=== PATIENT | female | born 1985 | race Caucasian/White ===

== ENCOUNTER 2021-06-16 16:32 | Emergency (ER) | payer OTHER ==
[~2021-06-16] VITALS: Ht 167.6 cm; Wt 115.9 kg
[2021-06-16] MEDS ORDERED: IV NORMAL SALINE 1,000ML 1,000 ML IV SCH (18:15)
[2021-06-16] MEDS ORDERED: ONDANSETRON PF 4 MG/2 ML VIAL. IVP ONE (18:15)
--- NOTE | 2021-06-16 18:18 | PHYS DOC ---
Past History Past Medical History IBS Past Surgical History: Cholecystectomy Additional Past Surgical Histo: ankle sx, L hand Drug Use: None General Adult EDM: Chief Complaint: MULTIPLE COMPLAINTS HPI: HPI: 36-year-old female with a history of IBS presents to the emergency department complaining of constipation for several days. She reports today she passed a stool that was coated with flaxseed which she has been eating for her constipation. She reports pain is diffuse across her abdomen that is been intermittent, affected by her bowel movements. She also reports some brown vaginal discharge, but denies that stool was passing through the vagina contrary to triage note. She denies any bleeding currently. The patient denies nausea, vomiting, fever, chills, chest pain, shortness of breath, urinary symptoms, cough, recent trauma, or any other complaints. She has not followed up with an [employer] [employer] [facility] or GI doctor as she is just moved to the area Review of Systems: Review of Systems: Review of systems otherwise negative except what was mentioned in HPI Allergies: Allergies: Allergies Coded Allergies Type Severity Reaction Last Updated Verified escitalopram Allergy Unknown 06/16/21 Yes Physical Exam: PE: Constitutional: No acute distress, non-toxic appearance. HENT: Atraumatic, bilateral external ears normal, nose normal. Eyes: PERRLA, EOMI, conjunctiva normal, no discharge. Neck: Normal range of motion, supple, no stridor. Cardiovascular: Heart rate regular rhythm. 2+ radial pulses Lungs & Thorax: No respiratory distress, symmetrical expansion. Abdomen: Diffuse mild tenderness, no peritoneal signs no rebound or guarding Skin: Warm, dry. Extremities: No tenderness, no cyanosis, ROM intact, no edema. Neurologic: Alert and oriented X 3, normal motor function, normal sensory function, no focal deficits noted. Non ataxic gait. GCS 15. Psychologic: Affect normal, judgment normal, mood normal. Current Patient Data: Labs: Laboratory Tests Test 06/16/21 16:58 06/16/21 18:28 Urine Collection Type Unknown Urine Color Straw Urine Clarity Clear Urine pH 7.0 Urine Specific Wendell 1.015 Urine Protein Neg (NEG-TRACE) Urine Glucose (UA) Neg mg/dL (NEG) Urine Ketones (Stick) Neg mg/dL (NEG) Urine Blood Neg (NEG) Urine Nitrite Neg (NEG) Urine Bilirubin Neg (NEG) Urine Urobilinogen Dipstick 0.2 mg/dL (0.2 mg/dL) Urine Leukocyte Esterase Neg (NEG) Urine RBC 0 /HPF (0-2) Urine WBC Rare /HPF (0-4) Urine Squamous Epithelial Cells Occ /LPF Urine Bacteria 0 /HPF (0-FEW) Sodium Level 141 mmol/L (136-145) Potassium Level 4.1 mmol/L (3.5-5.1) Chloride Level 102 mmol/L (98-107) Carbon Dioxide Level 29 mmol/L (21-32) Anion Gap 10 (6-14) Blood Urea Nitrogen 11 mg/dL (7-20) Creatinine 0.6 mg/dL (0.6-1.0) Estimated GFR (Cockcroft-Gault) 113.8 BUN/Creatinine Ratio 18 (6-20) Glucose Level 77 mg/dL (70-99) Calcium Level 9.1 mg/dL (8.5-10.1) Total Bilirubin 0.6 mg/dL (0.2-1.0) Aspartate Amino Transferase (AST) 22 U/L (15-37) Alanine Aminotransferase (ALT) 28 U/L (14-59) Alkaline Phosphatase 80 U/L (46-116) Total Protein 7.0 g/dL (6.4-8.2) Albumin 4.0 g/dL (3.4-5.0) Albumin/Globulin Ratio 1.3 (1.0-1.7) Lipase 49 U/L (73-393) L White Blood Count 9.8 x10^3/uL (4.0-11.0) Red Blood Count 4.18 x10^6/uL (3.50-5.40) Hemoglobin 12.6 g/dL (12.0-15.5) Hematocrit 38.6 % (36.0-47.0) Mean Corpuscular Volume 92 fL (79-100) Mean Corpuscular Hemoglobin 30 pg (25-35) Mean Corpuscular Hemoglobin Concent 33 g/dL (31-37) Red Cell Distribution Width 14.0 % (11.5-14.5) Platelet Count 302 x10^3/uL (140-400) Neutrophils (%) (Auto) 63 % (31-73) Lymphocytes (%) (Auto) 28 % (24-48) Monocytes (%) (Auto) 7 % (0-9) Eosinophils (%) (Auto) 2 % (0-3) Basophils (%) (Auto) 1 % (0-3) Neutrophils # (Auto) 6.2 x10^3uL (1.8-7.7) Lymphocytes # (Auto) 2.8 x10^3/uL (1.0-4.8) Monocytes # (Auto) 0.6 x10^3/uL (0.0-1.1) Eosinophils # (Auto) 0.2 x10^3/uL (0.0-0.7) Basophils # (Auto) 0.1 x10^3/uL (0.0-0.2) Vital Signs: Vital Signs Date Time Temp Pulse Resp B/P (MAP) Pulse Ox O2 Delivery O2 Flow Rate FiO2 06/16/21 17:02 98.5 68 18 134/77 97 Room Air Radiology/Procedures: Radiology/Procedures: CT abdomen and pelvis with contrast: Reason for examination: Abdominal pain with nausea and constipation. Helical images were obtained through the abdomen pelvis with intravenous administration of 75 cc Omnipaque 300. Reconstruction was performed in sagittal and coronal planes. Exposure: One or more of the following individualized dose reduction techniques were utilized for this examination: 1. Automated exposure control 2. Adjustment of the mA and/or kV according to patient size 3. Use of iterative reconstruction technique. The lung bases are clear. The heart size is normal with no pericardial effusion. No abnormality seen at the liver, spleen, adrenal glands or pancreas. The gallbladder surgically absent. The abdominal aorta and inferior vena cava show no abnormality. No abnormality seen at the appendix. The colon shows no diverticulosis, diverticulitis or colitis. The small intestinal tract shows no abnormal dilatation, wall thickening and no evidence of obstruction. The stomach shows no wall thickening or obstruction no abnormality seen at the duodenum. The kidneys show no renal masses, renal calculi, hydronephrosis or evidence of obstructive uropathy. No abnormality seen at the bladder or uterus. There does appear to be a 2 cm cystic lesion in the right ovary as well as a couple small follicles in the left ovary. No other adnexal masses or free fluid are seen. No acute bony abnormalities are seen. IMPRESSION: Small 2 cm cyst in the right ovary and small follicles in the left ovary. No other focal abnormality seen in the abdomen or pelvis. Electronically signed by: Luna Barlow MD (06/16/2021 6:48 PM) Heart Score: C/O Chest Pain: No Course & Med Decision Making: Course & Med Decision Making Patient's labs are unremarkable, she did not want to wait for her wet mount results. She was advised to follow-up with an [facility] [employer] [facility] and GI doctor for further care. CT as above was unremarkable. Patient is comfortable with plan Departure Departure: Impression: Primary Impression: Abdominal pain Disposition: HOME / SELF CARE / HOMELESS Condition: STABLE Referrals: GINA PACHECO MD (PCP) SHAYY BEAL MD Patient Instructions: Abdominal Pain (Nonspecific) Additional Instructions: You were seen in the emergency department for abdominal pain. Your tests did not show any obvious acute cause of your symptoms and your physical exam was non concerning for a dangerous disease process at this time. This however can change early in a disease course. You must return to the ED if you develop any new or worrisome symptoms for another exam. - Make sure to drink plenty of fluids at home - You may take a gentle laxative such as Miralax (over the counter) for bowel comfort. - Avoid drinking alcohol while you are having abdominal pain as this may worsen symptoms. - Return to the ER if you are not able to tolerate water and/or a normal diet, have increased pain or a change in character of your pain, develop a fever (>100.3 F), have nausea, vomiting and/or diarrhea that is unable to be treated at home, pass out, and/or you are not able to perform you normal daily activity. Please follow-up with an [facility] [employer] [facility] and GI doctor for further care Dr. Javi Suarez Jr, MD [employer] in [place], [place] Address: [address] [place] [address] [id number], [place] [address] JUAN TALAVERA DO Jun 16, 2021 18:18
[2021-06-16] MEDS ORDERED: IOHEXOL 300 MG/ML 75 ML VIAL. IV ONE (18:30)
--- NOTE | 2021-06-16 18:51 | RAD ---
CT abdomen and pelvis with contrast: Reason for examination: Abdominal pain with nausea and constipation. Helical images were obtained through the abdomen pelvis with intravenous administration of 75 cc Omni paque 300. Reconstruction was performed in sagittal and coronal planes. Exposure: One or more of the following individualized dose reduction techniques were utilized for thi s examination: 1. Automated exposure control 2. Adjustment of the mA and/or kV according to patient size 3. Use of iterative reconstruction technique. The lung bases are clear. The heart size is normal with no pericardial effusion. No abnormality seen at the liver, spleen, adrenal glands or pancreas. The gallbladder surgically abse nt. The abdominal aorta and inferior vena cava show no abnormality. No abnormality seen at the append ix. The colon shows no diverticulosis, diverticulitis or colitis. The small intestinal tract shows no abnormal dilatation, wall thickening and no evidence of obstruction. The stomach shows no wall thick ening or obstruction no abnormality seen at the duodenum. The kidneys show no renal masses, renal andreina culi, hydronephrosis or evidence of obstructive uropathy. No abnormality seen at the bladder or uterus. There does appear to be a 2 cm cystic lesion in the rig ht ovary as well as a couple small follicles in the left ovary. No other adnexal masses or free fluid are seen. No acute bony abnormalities are seen. IMPRESSION: Small 2 cm cyst in the right ovary and small follicles in the left ovary. No other focal abnormality seen in the abdomen or pelvis. Electronically signed by: Luna Barlwo MD (06/16/2021 6:48 PM) L[facility]
[2021-06-16 19:16] LABS: CALCIUM 9.1 mg/dL (8.5-10.1); CREATININE 0.6 mg/dL (0.6-1.0); GFR 113.8; POTASSIUM 4.1 mmol/L (3.5-5.1)
[2021-06-16 19:22] LABS: ALBUMIN/GLOBULIN RATIO 1.3 (1.0-1.7); TOTAL BILIRUBIN 0.6 mg/dL (0.2-1.0)
[2021-06-16 19:22] LABS: BASO # 0.1 x10^3/uL (0.0-0.2); BASO % 1 % (0-3); EOS # 0.2 x10^3/uL (0.0-0.7); EOS % 2 % (0-3); HEMATOCRIT 38.6 % (36.0-47.0); HEMOGLOBIN 12.6 g/dL (12.0-15.5); LYMPH # 2.8 x10^3/uL (1.0-4.8); LYMPH % 28 % (24-48); MEAN CORPUSCULAR HEMOGLOBIN 30 pg (25-35); MEAN CORPUSCULAR HGB CONC 33 g/dL (31-37); MEAN CORPUSCULAR VOLUME 92 fL (79-100); MONO # 0.6 x10^3/uL (0.0-1.1); MONO % 7 % (0-9); NEUT # 6.2 x10^3uL (1.8-7.7); NEUT % 63 % (31-73); PLATELET COUNT 302 x10^3/uL (140-400); RED BLOOD COUNT 4.18 x10^6/uL (3.50-5.40); WHITE BLOOD COUNT 9.8 x10^3/uL (4.0-11.0)
[2021-06-16 19:39] LABS: BACTERIA,URINE 0 /HPF (0-FEW); BILIRUBIN,URINE NEG (NEG); CLARITY,URINE CLEAR; COLOR,URINE STRAW; GLUCOSE,URINE NEG (NEG); NITRITE,URINE NEG (NEG); RBC,URINE 0 /HPF (0-2); SQUAMOUS EPITHELIAL CELL,UR OCC /LPF; UROBILINOGEN,URINE 0.2 mg/dL (0.2 mg/dL); WBC,URINE RARE /HPF (0-4)
[2021-06-16 21:52] VITALS: BP 132/76
[2021-06-19 15:09] LABS: CHLAMYDIA PROBE Negative (Negative)
== END 2021-06-16 21:52 | disposition home or self-care (01) ==
LOC: ER 16:32
DX: K59.00 Constipation, unspecified (principal); Z90.49 Acquired absence of other specified parts of digestive tract
CPT/HCPCS: 36415; 74177; 80053; 81001; 83690; 85025; 87491; 87591; 96361; 96374; 99285; J2405; J7030; Q9967